=== PATIENT | female | born 2000 | race African-American/Black ===

== ENCOUNTER 2022-03-12 23:50 | Emergency (ER) | payer OTHER ==
[~2022-03-12 23:50] MED LIST: ZOFRAN8 MG PO
[2022-03-13 00:40] LABS: BASOPHIL 0.7 % (0-2); EOSINOPHIL 5.7 % (0-5); HCT 36.4 % (37.0-47.0); HGB 12.2 g/dl (12.5-16.0); LYMPHOCYTE 39.5 % (15-48); MCH 29.8 pg (25.0-31.0); MCHC 33.5 g/dL (32.0-36.0); MCV 88.8 fL (78.0-100.0); MONOCYTE 4.4 % (0-12); MPV 9.3 fL (6.0-9.5); NEUTROPHIL 49.5 % (41-80); NRBC 0; PLT 294 K/uL (150-400); RDW 12.4 % (11.5-14.0); WBC 6.1 K/uL (4.0-10.5)
[2022-03-13 01:06] LABS: ALBUMIN 3.5 g/dL (3.4-5.0); BILIRUBIN - TOTAL 0.1 mg/dL (0.2-1.0); BUN/CREAT RATIO (CALC) 9.8 RATIO; CREATININE 0.61 mg/dL (0.51-0.95); GLOBULIN (CALCULATION) 3.9 g/dL; POTASSIUM 3.8 mmol/L (3.5-5.1); TOTAL PROTEIN 7.4 g/dL (6.4-8.2)
[2022-03-13] MEDS ORDERED: OMEPRAZOLE 20MG20 MG PO (03:45)
== END 2022-03-13 04:20 | disposition home or self-care (01) ==
LOC: FER 23:50
PROVIDERS: Emergency Medicine
DX: R07.89 Other chest pain (principal); J45.909 Unspecified asthma, uncomplicated; F17.200 Nicotine dependence, unspecified, uncomplicated; Z88.0 Allergy status to penicillin; Z28.310 Unvaccinated for COVID-19
CPT/HCPCS: 36415; 71045; 80053; 83690; 84484; 85025; 85379; 93005

== ENCOUNTER 2022-05-29 08:18 | Emergency (ER) | payer OTHER ==
[~2022-05-29 08:18] MED LIST changes: +OMEPRAZOLE 20MG20 MG PO
[2022-05-29 09:06] LABS: BASOPHIL 0.4 % (0-2); EOSINOPHIL 4.8 % (0-5); HGB 12.2 g/dl (12.5-16.0); LYMPHOCYTE 35.5 % (15-48); MCH 29.5 pg (25.0-31.0); MCV 89.4 fL (78.0-100.0); MONOCYTE 3.9 % (0-12); MPV 9.6 fL (6.0-9.5); NRBC 0; PLT 281 K/uL (150-400); RBC 4.14 M/uL (4.20-5.40); RDW 11.9 % (11.5-14.0); WBC 6.9 K/uL (4.0-10.5)
[2022-05-29 09:43] LABS: ALBUMIN 3.5 g/dL (3.4-5.0); BILIRUBIN - TOTAL 0.2 mg/dL (0.2-1.0); BUN/CREAT RATIO (CALC) 18.6 RATIO; CREATININE 0.59 mg/dL (0.51-0.95); GLOBULIN (CALCULATION) 4.1 g/dL; POTASSIUM 3.2 mmol/L (3.5-5.1); TOTAL PROTEIN 7.6 g/dL (6.4-8.2)
[2022-05-29] MEDS ORDERED: PROTONIX 40MG T40 MG PO (12:38)
[2022-05-29] MEDS ORDERED: ATARAX25 MG PO (12:38)
== END 2022-05-29 13:05 | disposition home or self-care (01) ==
LOC: FER 08:18
PROVIDERS: Emergency Medicine
DX: R07.89 Other chest pain (principal); J45.909 Unspecified asthma, uncomplicated; Z88.0 Allergy status to penicillin
CPT/HCPCS: 36415; 71046; 80053; 84484; 85025; 85379; 93005